=== PATIENT | male | born 1985 | race Two or more races ===

== ENCOUNTER 2017-11-07 06:18 | Day surgery (SDC) | payer OTHER ==
[2017-11-07] VITALS (11 sets, daily range): BP systolic 102–135; BP diastolic 65–80
[~2017-11-07] VITALS: Ht 182.9 cm; Wt 81.6 kg
[~2017-11-07 06:18] MED LIST: ceFAZolin 1gm in D5W 55ml IVP ONE; celeBREX 200mg Cap **SURGERY PATIENTS ONLY ORAL ONE; oxyCONTIN 20mg tab ORAL ONE
[2017-11-07] MEDS ORDERED: Tylenol #3 tab (300mg/30mg) ORAL PRN (07:15)
[2017-11-07] MEDS ORDERED: HYDROmorphone 1mg/ml Carpuject SUBQ PRN (07:15)
[2017-11-07] MEDS ORDERED: D5 1/2NS 1,000 ML IV SCH (07:15)
[2017-11-07] MEDS ORDERED: Norco 5mg/325mg tab ORAL PRN (07:15)
--- NOTE | 2017-11-07 07:15 | Pre-Procedure Note/Attestation ---
Pre-Procedure Note/Attestation Complete Prior to Procedure Planned Procedure: right Procedure Narrative: right shoulder arthroscopy sad Indications for Procedure Pre-Operative Diagnosis: right shoulder impingement Attestation I attest that I discussed the nature of the procedure; its benefits; risks and complications; and alternatives (and the risks and benefits of such alternatives ), prior to the procedure, with the patient (or the patient's legal operations representative). I attest that, if there was a reasonable possibility of needing a blood transfusion, the patient (or the patient's legal operations representative) was given the [facility] standardized written summary, pursuant to the Massimo Brian Blood Safety Act ([place] Health and Safety Code # 1645, as amended). I attest that I re-evaluated the patient just prior to the surgery and that there has been no change in the patient's H&P, except as documented below: Juan Wayne MD Nov 07, 2017 07:15
--- NOTE | 2017-11-07 07:16 | Operative Note - PDOC ---
Operative Note Operative Note Pre-op Diagnosis: right shoulder impingement Procedure: see op report Post-op Diagnosis: same as pre-op plus Operative Findings: consistent w/pre-op dx studies Anesthesia: regional Specimen: none Complications: none Condition: stable Estimated Blood Loss: none Implant(s) used?: No Juan Wayne MD Nov 07, 2017 07:16
[2017-11-07] MEDS ORDERED: celeBREX 200mg Cap **SURGERY PATIENTS ONLY ORAL ONE (11:44)
[2017-11-07] MEDS ORDERED: oxyCONTIN 20mg tab ORAL ONE ×2 (11:44→12:00)
[2017-11-07] MEDS ORDERED: Sterile Water For Irrig 2000ml IRRIG ONE (12:00)
[2017-11-07] MEDS ORDERED: LR 1000ml ONE (12:00)
[2017-11-07] MEDS ORDERED: NS Irrig 4000ml IRRIG ONE (12:00)
[2017-11-07] MEDS ORDERED: Midazolam 2mg/2ml Inj ONE (12:08)
[2017-11-07] MEDS ORDERED: fentaNYL 100 mcg/2 mL IV ONE (12:08)
[2017-11-07] MEDS ORDERED: Propofol 200mg/20ml IV ONE (13:00)
[2017-11-07] MEDS ORDERED: Ketorolac 30mg Inj ONE (13:00)
[2017-11-07] MEDS ORDERED: Lidocaine 1% MPF 10mg/ml 5ml ONE (13:00)
[2017-11-07] MEDS ORDERED: Ropivacaine 5mg/ml Vial 30ml INJ ONE (13:00)
[2017-11-07] MEDS ORDERED: Kenalog-40 1ml Vial ONE (13:02)
[2017-11-07] MEDS ORDERED: Bupivacaine 0.5% Inj 30 ml vial INJ ONE (13:14)
[2017-11-07] MEDS ORDERED: EPINEPHrine 1mg/1ml Amp ONE (13:14)
--- NOTE | 2017-11-07 13:14 | Anethesia Preoperative Eval ---
Anesthesia Pre-op PMH/ROS General Date of Evaluation: Nov 07, 2017 Time of Evaluation: 12:00 Anesthesiologist: samantha ASA Score: ASA 1 Mallampati Score Class I : Soft palate, uvula, fauces, pillars visible Class II: Soft palate, uvula, fauces visible Class III: Soft palate, base of uvula visible Class IV: Only hard plate visible Mallampati Classification: Class II Surgeon: louis Diagnosis: shoulder impigment Surgical Procedure: right shoulder decompression Anesthesia History: none Family History: no anesthesia problems Allergies: Coded Allergies: No Known Allergies (Unverified , 11/06/17) Medications: see eMAR Past Medical History Cardiovascular: Denies: HTN, CAD, SD, valve dz, arrhythmia, other Pulmonary: Denies: asthma, COPD, FABIOLA, other Gastrointestinal/Genitourinary: Denies: GERD, CRI, ESRD, other Neurologic/Psychiatric: Denies: dementia, CVA, depression/anxiety, TIA, other Endocrine: Denies: DM, hypothyroidism, steroids, other HEENT: Denies: cataract (L), cataract (R), glaucoma, AKHIOK (L), AKHIOK (R), other Hematology/Immune: Denies: anemia, DVT, bleeding disorder, other Musculoskeletal/Integumentary: Denies: OA, RA, DJD, DDD, edema, other PSxH Narrative: denies Anesthesia Pre-op Phys. Exam Physician Exam Last Vital Signs Date Time Temp Pulse Resp B/P (MAP) Pulse Ox O2 Delivery O2 Flow Rate FiO2 11/07/17 11:04 Room Air 11/07/17 11:03 98.2 55 18 112/76 (88) 99 98.2 Constitutional: NAD Neurologic: CN 2-12 intact Cardiovascular: RRR Respiratory: CTA Gastrointestinal: S/NT/ND Airway Exam Mallampati Classification 2 Mallampati Score: Class II MO: full Neck: normal TMD: 2fb ROM: full Teeth: other - chipped front incisor Dentures: no upper, no lower Anesthesia Pre-op A/P Studies Pre-op Studies: EKG - sr Risk Assessment & Plan Plan: general + ISB Status Change Before Surgery: No Pre-Antibiotics Drug: ancef Given Within 1 Hr of Incision: Yes Time Given: 12:55 Priyanka Chan CRNA Nov 07, 2017 13:14
[2017-11-07] MEDS ORDERED: fentaNYL 100 mcg/2 mL IV PRN (13:15)
[2017-11-07] MEDS ORDERED: Acetaminophen (Non formulary) 100 ML IV ONE (13:15)
[2017-11-07] MEDS ORDERED: Neostigmine 1mg/ml 10ml Inj ONE (13:28)
[2017-11-07] MEDS ORDERED: Glycopyrrolate 0.2mg/ml 1ml Vial ONE (13:28)
--- NOTE | 2017-11-07 13:57 | Immediate Post-Op Evaluation ---
Immediate Post-Op Evalulation Immediate Post-Op Evalulation Procedure: right shoulder arthroscopy Date of Evaluation: Nov 07, 2017 Time of Evaluation: 13:56 IV Fluids: 500 Blood Pressure Systolic: 111 Blood Pressure Diastolic: 80 Pulse Rate: 67 Respiratory Rate: 14 O2 Sat by Pulse Oximetry: 98 Temperature (Fahrenheit): 97.3 Pain Score (1-10): 0 Nausea: No Vomiting: No Complications none Patient Status: awake, reacts, patent Hydration Status: adequate Drug: ancef Given Within 1 Hr of Incision: Yes Time Given: 12:53 Priyanka Chan CRNA Nov 07, 2017 13:57
--- NOTE | 2017-11-07 15:34 | 48 Hour Post Anesthesia Eval ---
Post Anesthesia Evaluation Procedure: right shoulder arthroscopy Date of Evaluation: Nov 07, 2017 Time of Evaluation: 15:34 Blood Pressure Systolic: 132 0: 71 Pulse Rate: 51 Respiratory Rate: 14 O2 Sat by Pulse Oximetry: 99 Airway: patent Nausea: No Vomiting: No Pain Intensity: 0 Hydration Status: adequate Cardiopulmonary Status: stable Mental Status/LOC: patient returned to baseline Follow-up Care/Observations: na Post-Anesthesia Complications: none Follow-up care needed: N/A Priyanka Chan CRNA Nov 07, 2017 15:34
--- NOTE | 2017-11-07 22:00 | Operative Note - Dictated ---
DATE OF OPERATION: 11/07/2017 NOTE: "POOR AUDIO QUALITY" PREOPERATIVE DIAGNOSIS: Left shoulder traumatic impingement syndrome. POSTOPERATIVE DIAGNOSES: 1. Partial articular-sided subscap rotator cuff tear. 2. Subacromial impingement/bursitis. PROCEDURE: 1. Right shoulder diagnostic arthroscopy. 2. Subacromial decompression, bursectomy, and release of CA ligament. SURGEON: Juan Wayne M.D. ANESTHESIA: Interscalene with general. INDICATION FOR PROCEDURE: The patient is a pleasant gentleman who has had progressive right shoulder pain. He failed conservative treatment. He was indicated for diagnostic arthroscopy, subacromial decompression, and bursectomy. Risks, limitations, expectations, and complications of the procedure were discussed in detail. All questions were addressed. DESCRIPTION OF PROCEDURE: Informed consent was obtained, the patient was brought to the operating room. The patient was placed under interscalene with general anesthesia. The patient was then carefully placed in beach-chair position. Right shoulder was prepped and draped in sterile manner. Time-out was performed. A posterolateral skin incision was made. Trocar was introduced into the glenohumeral joint. A systematic tour of the shoulder was performed. No significant chondral damage. The anterior labrum appeared to be intact. There was some mild tearing of the superior upper portion of the subscap. The biceps tendon appeared to be intact along with the superior labrum and the undersurface of the rotator cuff. Partial debridement of this partial articular-sided rotator cuff tear along the subscap was performed. The camera was then repositioned in the subacromial space. There was significant the acromion was identified. Acromioplasty was started from lateral to medial and completed from posterior to anterior. Once that was completed, the bursectomy was finished and completed. The instruments were removed. Portal sites were closed with 3-0 Monocryl sutures. Steri-Strips and a dry sterile dressing were applied. The patient was awoken and taken to recovery room with stable vital signs. ESTIMATED BLOOD LOSS: None. COMPLICATIONS: None. SPECIMENS: None. IMPLANTS: None. Juan Wayne M.D. DR: Man JOB#: [id number] CC:
== END 2017-11-07 15:20 | disposition home or self-care (01) ==
LOC: SUR 06:18
DX: M75.111 Incomplete rotator cuff tear or rupture of right shoulder, not specified as traumatic (principal); M75.41 Impingement syndrome of right shoulder; M50.80 Other cervical disc disorders, unspecified cervical region; M25.50 Pain in unspecified joint; Z87.891 Personal history of nicotine dependence
CPT/HCPCS: 29822; J0171; J0690; J1885; J2250; J2405; J2704; J2710; J2795; J3010; J3490; J7120; 94003; 94150